=== PATIENT | female | born 1935 | race Caucasian/White ===

== ENCOUNTER 2021-04-06 12:22 | Emergency (ER) | payer MEDICARE, BC ==
[2021-04-06 13:12] VITALS: BP 150/77; PULSE 93
--- NOTE | 2021-04-06 13:13 | EDM.PDOC ---
ED HPI GENERAL MEDICAL PROBLEM - General Chief Complaint: General Stated Complaint: [id number] NOT EATING/DRINKING. MISSING MEDS. CONFUSI Time Seen by Provider: 04/06/21 13:13 Source of Information: Reports: Patient, Family (Daughter), Old Records, RN, RN Notes Reviewed History Limitations: Reports: Altered Mental Status (Confusion/Dementia) - History of Present Illness INITIAL COMMENTS - FREE TEXT/NARRATIVE: Pt brought to ER by daughter stating they were instructed to come here by Daisy Miner FUR TAILOR for evaluation of weight loss, confusion, and loss of appetite. Pt's daughter has questions about elder care options, durable medical POA, etc. [place] 89yr old who suffers from advanced dementia. The have a caregiver for the Sunday through Sunday. The pt has been losing wt, and has loss of appetite. It sounds as if the caregiver is feeling unable to provide the care the couple needs. Pt denies pain, N/V, diarrhea, constipation, dysuria, or any other complaints. Pt admits that she is very hard of hearing, and is very forgetful. Pt states she will not leave the farm or her , and is not interested in assisted living or intermediate. It is unclear to me why they are being seen in the emergency department at this time, as the pt has no acute complaints. Pt has CKD Stage 4, but refuses dialysis. She has Hx of lung CA, colon CA, breast CA, and an abdominal tumor. Pt has declined any treatment for her cancers. Onset: Unknown/Unsure Duration: Chronic Location: Reports: Generalized - Related Data Allergies Allergy/AdvReac Type Severity Reaction Status Date / Time adhesive tape Allergy Cannot Verified 10/23/16 13:13 Remember erythromycin base Allergy Cannot Verified 10/23/16 13:13 Remember latex Allergy Rash Verified 10/23/16 13:31 morphine Allergy Confusion Verified 10/23/16 13:13 Home Meds: Home Meds Escitalopram Oxalate 5 mg PO ASDIRECTED 04/06/21 [History] Famotidine 20 mg PO ASDIRECTED 04/06/21 [History] Isosorbide Dinitrate 40 mg PO ATDISCHARGE 04/06/21 [History] Isosorbide Mononitrate [Isosorbide Mononitrate ER] 30 mg PO ASDIRECTED 04/06/21 [History] Levothyroxine Sodium [Levothyroxine] 75 mcg PO ASDIRECTED 04/06/21 [History] Metoprolol Succinate [Toprol XL] 25 mg PO DAILY 04/06/21 [History] Simvastatin 20 mg PO ASDIRECTED 04/06/21 [History] Triamcinolone Acetonide [Triamcinolone Acetonide 0.1% Oint] 1 dose .ROUTE ASDIRECTED 04/06/21 [History] Past Medical History HEENT History: Reports: Impaired Vision Cardiovascular History: Reports: High Cholesterol, Hypertension Respiratory History: Reports: COPD, Sleep Apnea Gastrointestinal History: Reports: None Genitourinary History: Reports: Urinary Incontinence SYSTEMS ANALYST History: Reports: Musculoskeletal History: Reports: Arthritis, Back Pain, Chronic Neurological History: Reports: Cerebral Aneurysms, CVA Psychiatric History: Reports: Dementia Endocrine/Metabolic History: Reports: Diabetes, Type II, Hypothyroidism Hematologic History: Reports: Anemia Immunologic History: Reports: None Oncologic (Cancer) History: Reports: Breast, Colon, Lung Dermatologic History: Reports: Psoriasis - Infectious Disease History Infectious Disease History: Reports: Chicken Pox, Measles - Past Surgical History HEENT Surgical History: Reports: Cataract Surgery, Other (See Below) Cardiovascular Surgical History: Reports: Carotid Endarterectomy GI Surgical History: Reports: Appendectomy, Cholecystectomy, Colonoscopy, Other (See Below) Female Surgical History: Reports: Hysterectomy, Mastectomy, Salpingo- Oophorectomy Oncologic Surgical History: Reports: Mastectomy, Other (See Below) Social & Family History - Family History Family Medical History: Unobtainable - Caffeine Use Caffeine Use: Reports: Tea Other Caffeine Use: AVERAGE OF 4 CUPS OF TEA DAILY - Living Situation & Occupation Living situation: Reports: , with Spouse Occupation: Retired ED ROS GENERAL - Review of Systems Review Of Systems: Comprehensive ROS is negative, except as noted in HPI. ED EXAM, GENERAL - Physical Exam Exam: See Below Exam Limited By: No Limitations General Appearance: Alert, No Apparent Distress Eye Exam: Bilateral Eye: Normal Inspection Ears: Hearing Loss Nose: Normal Inspection Throat/Mouth: Normal Lips, Normal Voice, No Airway Compromise Head: Atraumatic, Normocephalic Neck: Normal Inspection, Supple, Non-Tender, Full Range of Motion Respiratory/Chest: No Respiratory Distress, Lungs Clear, Normal Breath Sounds, No Accessory Muscle Use, Chest Non-Tender Cardiovascular: Regular Rate, Rhythm, No Edema GI/Abdominal: Normal Bowel Sounds, Soft, Non-Tender Back Exam: Full Range of Motion Extremities: Normal Inspection, Normal Range of Motion, Non-Tender, No Pedal Edema, Normal Capillary Refill Neurological: Alert, Oriented (to person and place), CN II-XII Intact, Confused, Memory Loss Recent Events Psychiatric: Normal Mood Skin Exam: Warm, Dry Course - Vital Signs Last Recorded V/S: Last Vital Signs Temp 98.2 F 04/06/21 13:07 Pulse 93 04/06/21 13:07 Resp 20 04/06/21 13:07 BP 150/77 H 04/06/21 13:07 Pulse Ox 92 L 04/06/21 13:07 - Orders/Labs/Meds Orders: Active Orders 24 hr Category Date Time Status CULTURE URINE [RM] Stat Lab 04/06/21 14:35 Received Labs: Laboratory Tests 04/06/21 04/06/21 04/06/21 Range/Units 13:50 13:50 14:35 WBC 5.6 (5.0-10.0) 10^3/uL RBC 3.36 L (4.2-5.4) 10^6/uL Hgb 9.4 L (12.0-16.0) g/dL Hct 31.5 L (37.0-47.0) % MCV 93.8 (80-100) fL MCH 28.0 (27.0-34.0) pg MCHC 29.8 L (33.0-35.0) g/dL Plt Count 190 (150-450) 10^3/uL Neut % (Auto) 52.0 (42.2-75.2) % Lymph % (Auto) 22.3 (20.5-50.1) % [place] % (Auto) 14.8 H (2-8) % Eos % (Auto) 10.5 H (1.0-3.0) % Baso % (Auto) 0.4 (0.0-1.0) % Sodium 141 (136-145) mmol/L Potassium 4.6 (3.5-5.1) mmol/L Chloride 105 (98-107) mmol/L Carbon Dioxide 29 (21-32) mmol/L Anion Gap 11.6 (7-13) mEq/L BUN 36 H (7-18) mg/dL Creatinine 1.80 H (0.55-1.02) mg/dL Est Cr Clr Drug Dosing TNP Estimated GFR (MDRD) 27 BUN/Creatinine Ratio 20.0 (No establ ref range) Glucose 93 (70-99) mg/dL Calcium 8.4 L (8.5-10.1) mg/dL Total Bilirubin 0.4 (0.2-1.0) mg/dL AST 14 L (15-37) U/L ALT 15 (14-59) U/L Alkaline Phosphatase 61 (46-116) U/L Total Protein 6.8 (6.4-8.2) g/dL Albumin 3.2 L (3.4-5.0) g/dL Globulin 3.6 Albumin/Globulin Ratio 0.89 Amylase 31 (25-115) U/L Lipase 122 (73-393) U/L TSH, Ultra Sensitive 1.03 (0.36-3.74) uIU/mL Urine Color Yellow (YELLOW) Urine Appearance Turbid (CLEAR) Urine pH 5.5 (5.0-9.0) Ur Specific [place] 1.020 (1.005-1.030) Urine Protein 30 H (NEGATIVE) Urine Glucose (UA) Negative (NEGATIVE) Urine Ketones Negative (NEGATIVE) Urine Occult Blood Trace-intact H (NEGATIVE) Urine Nitrite Negative (NEGATIVE) Urine Bilirubin Negative (NEGATIVE) Urine Urobilinogen 0.2 (0.2-1.0) mg/dL Ur Leukocyte Esterase Small H (NEGATIVE) Urine RBC 10-20 H /HPF Urine WBC >100 H (0-5/HPF) /HPF Ur Epithelial Cells Few (NOT SEEN) /HPF Amorphous Sediment Moderate H (NOT SEEN) /HPF Urine Bacteria Many H (0-FEW/HPF) /HPF Fine Granular Casts Few H (NOT SEEN) /LPF Urine Mucus Few H (NOT SEEN) /LPF - Re-Assessments/Exams Free Text/Narrative Re-Assessment/Exam: 04/06/21 15:21 I called Daisy Miner NP to discuss the case, and ensure that Daisy was aware of the need for elder/end of life planning. Departure - Departure Time of Disposition: 15:00 Disposition: Home, Self-Care 01 Condition: Fair Clinical Impression: Weight loss, non-intentional, Failure to thrive syndrome, adult - Discharge Information *PRESCRIPTION DRUG MONITORING PROGRAM REVIEWED*: Not Applicable *COPY OF PRESCRIPTION DRUG MONITORING REPORT IN PATIENT IRAJ: Not Applicable Instructions: Failure to Thrive, Adult Forms: ED Department Discharge Additional Instructions: Call [facility], ask for Daisy Miner's nurse and she will assist your in getting an appointment. Consult an civil litigation attorney for Durable Medical Power of Dry Press Operator Helper. Involve the family and make a care plan for your future, and discuss this with Daisy Miner as well. Try Ensure or Boost nutrition supplements. Sepsis Event Note (ED) - Evaluation Sepsis Screening Result: No Definite Risk - Focused Exam Vital Signs: Vital Signs Temp Pulse Resp BP Pulse Ox 04/06/21 13:07 98.2 F 93 20 150/77 H 92 L - My Orders Last 24 Hours: My Active Orders 04/06/21 14:35 CULTURE URINE [RM] Stat - Assessment/Plan Last 24 Hours: My Active Orders 04/06/21 14:35 CULTURE URINE [RM] Stat
[2021-04-06 14:56] LABS: ANION GAP 11.6 mEq/L (7-13); CHLORIDE,CL 105 mmol/L (98-107); SODIUM,NA 141 mmol/L (136-145)
== END 2021-04-06 15:40 | disposition home or self-care (01) ==
LOC: DL.ED 12:22
DX: R62.7 Adult failure to thrive (principal); R63.4 Abnormal weight loss; E78.00 Pure hypercholesterolemia, unspecified; I10 Essential (primary) hypertension; E11.9 Type 2 diabetes mellitus without complications; E03.9 Hypothyroidism, unspecified; Z79.899 Other long term (current) drug therapy; Z91.048 Other nonmedicinal substance allergy status; Z88.1 Allergy status to other antibiotic agents; Z91.040 Latex allergy status; Z88.6 Allergy status to analgesic agent
CPT/HCPCS: 36415; 80053; 81001; 82150; 83690; 84443; 85025; 87086; 87088; 87186; 99284; J1642; 99283